=== PATIENT | male | born 2000 | race Caucasian/White ===

== ENCOUNTER 2024-03-05 17:44 | Emergency (ER) | payer OTHER, SELFPAY ==
--- NOTE | 2024-03-05 17:50 | ED.URI ---
HPI - URI/Sore Throat General Chief Complaint: Upper Respiratory Infection Stated Complaint: HEADACHE/SORE THROAT Source: patient and RN notes reviewed Mode of arrival: ambulatory Limitations: no limitations History of Present Illness HPI Narrative: Patient is a 23-year-old male who presents to the [facility] with complaints of sore throat, headache, and cough for the past 3 days states that his sore throat and headache continued to worsen. He reports a frequent nonproductive cough. Denies known fevers. Denies nasal congestion or drainage. Denies chest pain or shortness of breath. Unsure of any known sick contacts. Related Data Allergies Allergy/AdvReac Type Severity Reaction Status Date / Time No Known Allergies Allergy Verified 03/05/24 18:01 Review of Systems Review of Systems: CONSTITUTIONAL: Denies fever, chills, or sweats. EYES: Denies visual changes, redness, or discharge. ENT: Denies otalgia. Reports sore throat. CARDIOVASCULAR: Denies chest pain, palpitations, or edema. RESPIRATORY: Reports cough but denies dyspnea. GASTROINTESTINAL: Denies abdominal pain, nausea, vomiting, or diarrhea. GENITOURINARY: Denies dysuria or hematuria. SKIN: Denies rash or itching. MUSCULOSKELETAL: Denies back pain, joint pain, or myalgia. NEUROLOGIC: Reports headache but denies numbness or weakness. Pertinent positives per HPI. PMFSH Comments At the time of my signature, I reviewed and agree with the nursing past medical, surgical, social, and family history. There is no relevant family history pertinent to the patient complaint. Exam Narrative: GENERAL: This is a well-nourished, well-developed patient, in no apparent distress. HEAD: normocephalic, atraumatic. EYES: Sclera clear/white. Vision is grossly intact. EARS: External ears normal. Hearing grossly intact. NOSE: External nose normal with no obvious nasal discharge, nares without redness, no rhinorrhea. THROAT: Mucous membranes moist, oropharyngeal erythema with exudate without ulceration. NECK: Neck supple, non-tender without lymphadenopathy, masses or thyromegaly. CARDIOVASCULAR: Regular rate and rhythm without murmurs, gallops, or rubs. RESPIRATORY: Clear to auscultation. Breath sounds equal bilaterally. No wheezes, rales, or rhonchi. GASTROINTESTINAL: Abdomen soft, non-tender, nondistended. Bowel sounds are active. No hepato-splenomegaly, or palpable masses. No guarding. SKIN: warm, intact with no suspicious lesions or rash, good texture and turgor. NEURO: awake, alert, and oriented to person, place and time. There were no obvious focal neurologic abnormalities. EXTREMITIES: No clubbing, cyanosis, or edema. No joint tenderness, effusion, or edema noted. BACK: Nontender without deformity or crepitance. No flank tenderness. Course Course Level of Care: Express Care Visit Vital Signs Vital signs: Vital Signs Temperature 100.5 F H 03/05/24 18:04 Pulse Rate 114 H 03/05/24 18:04 Respiratory Rate 18 03/05/24 18:04 Blood Pressure 133/78 03/05/24 18:04 Pulse Oximetry 99 03/05/24 18:04 Oxygen Delivery Room Air 03/05/24 18:04 Temperature 100.5 F H 03/05/24 18:04 Pulse Rate 114 H 03/05/24 18:04 Respiratory Rate 18 03/05/24 18:04 Blood Pressure 133/78 03/05/24 18:04 Pulse Oximetry 99 03/05/24 18:04 Oxygen Delivery Room Air 03/05/24 18:04 Reviewed MDM - URI/Sore Throat MDM Narrative Medical decision making narrative: After 24 hours on antibiotics throw tooth brush away and start using a new one. Increase your Vitamin C. Do not share drinks. Take Motrin alternating with Tylenol for pain and/or fever alternating every 4 hours. Increase fluids, avoid caffeine. Take a probiotic daily or eat a low sugar yogurt while taking the antibiotic. Follow up with Primary provider if not getting better this week Differential Diagnosis Differential diagnosis: Likely upper respiratory infection, viral infection, pharyngitis
[2024-03-05 18:04] VITALS: BP 133/78; PULSE 114; RESP 18; TEMP 38.1; O2SAT 99
[2024-03-05 18:28] LABS: EDSTREPNEGPOS1 Positive (Negative)
== END 2024-03-05 18:37 | disposition home or self-care (01) ==
PROVIDERS: Emergency Provider Nurse Practitioner
DX: J02.0 Streptococcal pharyngitis (principal); Z20.822 Contact with and (suspected) exposure to COVID-19
CPT/HCPCS: 87635; 87880; 99203; G0463

== ENCOUNTER 2024-04-22 16:41 | Emergency (ER) | payer OTHER, SELFPAY ==
[2024-04-22 16:50] VITALS: BP 161/91; PULSE 101; RESP 16; TEMP 36.9; O2SAT 98
--- NOTE | 2024-04-22 17:09 | ED.HA ---
HPI - Headache General Chief Complaint: Headache Stated Complaint: Headache Time Seen by Provider: 04/22/24 17:09 Source: patient Mode of arrival: ambulatory Limitations: no limitations History of Present Illness HPI Narrative: 23 y/o male presented for c/o intermittent headaches x1 week. States the headache is to the base of the skull and headache only occurs when he is about to climax during sexual activity. States the headaches last a few minutes, and slightly linger afterwards. Denies vision changes, dizziness, n/v/f/c. Has taken ibuprofen. Related Data Allergies Allergy/AdvReac Type Severity Reaction Status Date / Time No Known Allergies Allergy Verified 04/22/24 17:20 Review of Systems Review of Systems: CONSTITUTIONAL: Denies body aches, fever, chills, or sweats. EYES: Denies visual changes. ENT: Denies rhinorrhea, congestion, sore throat, or otalgia. CARDIOVASCULAR: Denies chest pain, palpitations, or edema. RESPIRATORY: Denies cough or dyspnea. GASTROINTESTINAL: Denies abdominal pain, nausea, vomiting, or diarrhea. SKIN: Denies rash, itching, or wounds. NEUROLOGIC: reports intermittent headache, denies numbness, tingling, or weakness. All systems reviewed & are unremarkable except as noted in HPI and below PMFSH Comments At time of signature, I have reviewed and agree with nursing past medical, surgical, social and family history unless otherwise noted. Please see nursing chart for further information. There is no relevant family history pertinent to the presenting complaint Exam Narrative: GENERAL: Well-appearing HEAD: Normocephalic, atraumatic. EYES: EOMI. No redness or drainage. Conjunctivae normal. ENT: Mucous membranes pink and moist. NECK: Normal AROM. Supple. No lymphadenopathy. CHEST: No respiratory distress. Clear to auscultation. HEART: Regular rate and rhythm. No murmur appreciated. Normal peripheral pulses. SKIN: Warm, dry, no rash. Capillary refill normal. Normal skin turgor. NEURO: No focal deficits. Alert and oriented x3. Gait steady. PSYCH: Normal affect. Course Course Emergency Course: Patient is aware of diagnosis, understands and agrees to treatment plan. Anticipatory guidance given. Patient agrees to follow-up as directed and is aware of reasons to seek care at the emergency department. Portions of this record may have been created with voice recognition software Level of Care: Express Care Visit Vital Signs Vital signs: Vital Signs Temperature 98.4 F 04/22/24 16:50 Pulse Rate 101 H 04/22/24 16:50 Respiratory Rate 16 04/22/24 16:50 Blood Pressure 161/91 H 04/22/24 16:50 Pulse Oximetry 98 04/22/24 16:50 Temperature 98.4 F 04/22/24 16:50 Pulse Rate 101 H 04/22/24 16:50 Respiratory Rate 16 04/22/24 16:50 Blood Pressure 142/91 H 04/22/24 17:30 Pulse Oximetry 98 04/22/24 16:50 MDM - Headache MDM Narrative Medical decision making narrative: Discussed physical exam findings, pt with headache a/w orgasm. Advised f/u with pcp and cardiology, list provided. Advised supportive measures and signs/symptoms to go to the ER. Pt is appropriate for outpt treatment and f/u. Differential Diagnosis Differential diagnosis: Likely migraine, tension headache, subarachnoid hemorrhage, headache, meningitis, sinusitis and other (Migraine, tension-type headache, cluster headache, concussion, seizure, meningitis, encephalitis, neurosyphilis, SAH, subdural hematoma, brain tumor, hypertensive encephalopathy, brain abscess, orgasm headache, multiple sclerosis, hemorrhagic stroke, Wernickes encephalopathy, and drug toxicity?) Discharge Plan Discharge Clinical Impression: Headache associated with orgasm Patient Disposition: Home, Self-Care Condition: Stable Instructions: Acute Headache (ED) Additional Instructions: Your blood pressure reading was elevated (above 120/80) please follow-up with your primary care provider for further evaluation and management. If you develop worsening Blood Pressure symptoms, (headache, vision changes, dizziness, vomiting, chest pain, etc) go to the ER. Call 911. Many people who have sex headaches will experience them in clusters over a few months, and then they may go for a year or more without having any.? Recommend abstaining from sexual activity until following up with PCP Take medications as directed Rest and stay hydrated Establish and Follow up with a primary care provider in 1 week Go to the ER for worsening symptoms or concerns Prescriptions: New methylprednisolone [Medrol (Fortino)] 4 mg tablets,dose pack See Rx Instructions .ROUTE .COMPLEX Qty: 21 0RF Rx Instructions: orally per package directions Follow-up/Referrals: Cayden Phelan MD [Physician] - PHYSICIAN,[employer] [Primary Care Provider] - Time of Disposition: 17:37
[2024-04-22 17:30] VITALS: BP 142/91
== END 2024-04-22 17:38 | disposition home or self-care (01) ==
PROVIDERS: Emergency Provider Nurse Practitioner Family
DX: R51.9 Headache, unspecified (principal)
CPT/HCPCS: 99213; G0463